=== PATIENT | female | born 1995 | race Caucasian/White ===

== ENCOUNTER 2018-03-08 21:10 | Emergency (ER) | payer SELFPAY, MEDICAID ==
[2018-03-08 23:43] LABS: URINE BLOOD (Dip) POC 1+ (NEGATIVE); URINE GLUCOSE (Dip) POC Negative (NEGATIVE); URINE KETONES (Dip) POC Negative (NEGATIVE); URINE LEUKOCYTE EST (Dip) POC Negative (NEGATIVE); URINE NITRITE (Dip) POC Negative (NEGATIVE); URINE TOTAL PROTEIN POC Negative (NEGATIVE)
[2018-03-08 23:43] LABS: URINE PH (Dip) POC 7.5 (5.0-8.5)
== END 2018-03-09 00:42 | disposition home or self-care (01) ==
LOC: FTE 21:10
DX: R10.30 Lower abdominal pain, unspecified (principal)
CPT/HCPCS: 81003; 81025; 99283